=== PATIENT | male | born 1955 | race Caucasian/White ===

== ENCOUNTER 2016-08-02 14:54 | Emergency (ER) | payer MEDICARE, MEDICAID ==
--- NOTE | 2016-08-02 15:49 | UC ---
UC General HPI - HPI Summary HPI Summary: Here with aide - pt non verbal report of rash on his buttocks for approx 2 weeks pt incontinent of urine and stool using clotrimazole cream without relief rash on his chest for approx 1 week - blotchy not using creams on the rash on chest no other report of complaints denies fever normal appetite and elimination no new foods, soaps etc - History of Current Complaint Chief Complaint: UCRash Stated Complaint: RASH BUTTOCK Time Seen by Provider: 08/02/16 15:42 - Allergy/Home Medications Allergies/Adverse Reactions: Allergies Allergy/AdvReac Type Severity Reaction Status Date / Time Sulfamethoxazole Allergy Unknown Verified 01/26/16 16:55 w/Trimethoprim Reaction [From Cotrim] Details Home Medications: Home Medications 08/02/16 See Pt Med List From [facility] 08/02/16 [History] PMH/Surg Hx/FS Hx/Imm Hx Previously Healthy: No - severe MR, CP Endocrine History Of: Denies: Diabetes Cardiovascular History Of: Reports: Cardiac Disorders - EKG abnormality hx Respiratory History Of: Denies: COPD Psychological History Of: Denies: Anxiety - Surgical History Surgical History: None Surgery Procedure, Year, and Place: splenectomy. LEFT ANKLE SX. T & A. bx cervical node. left inguinal herniorrhaphy and left orchidectomy. hernia repair. cataracts. bone marrow bx - Family History Known Family History: Positive: Unknown - Social History Occupation: Disabled Lives: [facility] Alcohol Use: None Substance Use Type: None Smoking Status (MU): Never Smoked Tobacco Review of Systems Constitutional: Negative Skin: Rash Eyes: Negative ENT: Negative Respiratory: Negative Cardiovascular: Negative Gastrointestinal: Negative Genitourinary: Negative Motor: Negative Neurovascular: Negative Musculoskeletal: Negative Neurological: Negative Psychological: Negative All Other Systems Reviewed And Are Negative: Yes Physical Exam Triage Information Reviewed: Yes Completion Of Physical Exam Limited Due To: Altered Mental Status, Other - non verbal sever MR Appearance: No Pain Distress, Thin Vital Signs: Initial Vital Signs Temp 98.5 F 08/02/16 15:28 Pulse 101 08/02/16 15:28 Resp 20 08/02/16 15:28 BP 133/84 08/02/16 15:28 Vital Signs Reviewed: Yes Eyes: Positive: Conjunctiva Clear ENT: Positive: Pharynx normal, TMs normal. Negative: Nasal congestion Neck: Positive: No Lymphadenopathy Respiratory: Positive: Lungs clear, Normal breath sounds, No respiratory distress Cardiovascular: Positive: RRR, No Murmur, Pulses Normal Abdomen Description: Positive: Nontender, Soft Bowel Sounds: Positive: Present Neurological: Positive: Other: - alert Psychological: Positive: Other: - making moaning noises throughout visit Skin Exam: Other - buttocks- bright erythemaouts rash with sattelite lesions chest and shins scatterd erythematous raised papules - no tunneling Skin: Positive: rashes Course/Dx - Differential Dx - Multi-Symptom Differential Diagnoses: Other - contact dermatitis candiasis diaper rash Provider Diagnoses: skin yeast infecction, contact dermatitis Discharge - Discharge Plan Condition: Stable Disposition: HOME Prescriptions: Alum & Mag Hydrox-Simethicone [Maalox Advanced Maximum S 400-400-40 mg/5Ml] 1 terry PO BID #1 terry Clotrimazole 1% TOPICAL (NF) [Lotrimin 1% TOPICAL (NF)] 1 applic TOPICAL BID #1 tube Dimethicone-Zinc Oxide-Vitamin [A & D Zinc Oxide] 1 cre EX BID #1 cre Hydrocortisone 1% CREAM* [Hytone Cream 1%*] 1 applic TOPICAL BID #1 tube Patient Education Materials: Skin Yeast Infection (ED), Contact Dermatitis (ED) Referrals: Chi Pyle MD [Primary Care Provider] - Additional Instructions: Mix the following ingredients and use with every diaper change 2 oz zinc oxide ointment 2 oz A+D ointment~ 1 oz Maalox or similar antacid~ 1 oz clotrimazole~ointment If no improvement in rash please follow-up with your primary care provider Apply hydrocortisone cream 1% to area of rash on [place] and chest If no improvement please make appt with Dr Chavez for followup care.
[2016-08-02 16:28] VITALS: BP 133/84
== END 2016-08-02 16:15 | disposition home or self-care (01) ==
LOC: UCCORT 14:54
DX: B37.89 Other sites of candidiasis (principal); L30.9 Dermatitis, unspecified; Z88.2 Allergy status to sulfonamides
CPT/HCPCS: 99212; G0463

== ENCOUNTER 2017-04-02 10:28 | Emergency (ER) | payer MEDICARE, MEDICAID ==
[2017-04-02 11:57] VITALS: BP 98/61
--- NOTE | 2017-04-02 12:20 | UC ---
Skin Complaint HPI - HPI Summary HPI Summary: patient is from a senior care, has had itchy rash on the neck and upper back, he has been digging and there is an open area above the left scapula. warmth and erythem accros the upper back, scaly rash on back of neck - History of Current Complaint Chief Complaint: UCRash Time Seen by Provider: 04/02/17 11:57 Stated Complaint: RASH Hx Obtained From: Patient Onset/Duration: Sudden Onset, Lasting Days Skin Exposure Onset/Duration: Days Ago Timing: Constant Onset Severity: Mild Current Severity: Moderate Character: Swelling, Pruritus, Redness Aggravating: Nothing Alleviating: Nothing - Allergy/Home Medications Allergies/Adverse Reactions: Allergies Allergy/AdvReac Type Severity Reaction Status Date / Time Sulfamethoxazole Allergy Unknown Verified 04/02/17 11:52 w/Trimethoprim Reaction [From Cotrim] Details Home Medications: Home Medications Famotidine TAB* [Pepcid 20 MG TAB*] 40 mg PO BID 04/02/17 [History Confirmed ] Review of Systems Constitutional: Negative Skin: Rash Eyes: Negative ENT: Negative Respiratory: Negative Cardiovascular: Negative Gastrointestinal: Negative Genitourinary: Negative Motor: Negative Neurovascular: Negative Musculoskeletal: Negative Neurological: Negative Psychological: Other - non verbal Is Patient Immunocompromised?: No All Other Systems Reviewed And Are Negative: Yes PMH/Surg Hx/FS Hx/Imm Hx Previously Healthy: Yes - Surgical History Surgical History: None Surgery Procedure, Year, and Place: splenectomy. LEFT ANKLE SX. T & A. bx cervical node. left inguinal herniorrhaphy and left orchidectomy. hernia repair. cataracts. bone marrow bx - Family History Known Family History: Positive: Unknown - Social History Alcohol Use: None Substance Use Type: None Smoking Status (MU): Never Smoked Tobacco Physical Exam Triage Information Reviewed: Yes Appearance: Well-Appearing, Well-Nourished, Pain Distress Vital Signs: Initial Vital Signs Temp 96.7 F 04/02/17 11:52 Pulse 74 04/02/17 11:52 Resp 16 04/02/17 11:52 BP 98/61 04/02/17 11:52 Vital Signs Reviewed: Yes Eye Exam: Normal ENT Exam: Normal Dental Exam: Normal Neck exam: Normal Respiratory Exam: Normal Cardiovascular Exam: Normal Abdominal Exam: Normal Musculoskeletal Exam: Normal Neurological Exam: Normal Psychological Exam: Normal Skin: Positive: rashes - along the upper back and back of neck, erythema, small open area on the left side, Course/Dx - Course Course Of Treatment: hx obtained, exam performed ,meds reveiwed, treated for infection and dematitis - Differential Diagnoses - Skin Complaint Differential Diagnoses: Abscess, Cellulitis, Contact Dermatitis, Eczema, Urticaria - Diagnoses Provider Diagnoses: dermatitis of upper back and neck. cellulitis of upper back Discharge - Discharge Plan Condition: Stable Disposition: HOME Prescriptions: Betamethasone Dip 0.05% ON(NF) [Betamethasone Dipr 0.05% OINT(NF)] 1 applic TOPICAL BID #1 tube Cephalexin CAP* [Keflex CAP*] 500 mg PO BID #14 cap Patient Education Materials: Contact Dermatitis (ED), Cellulitis (ED) Additional Instructions: 1. see the communitication sheet and complete orders as written.
== END 2017-04-02 12:27 | disposition home or self-care (01) ==
LOC: UCCORT 10:28
DX: L03.312 Cellulitis of back [any part except buttock and flank] (principal); L30.9 Dermatitis, unspecified; Z88.1 Allergy status to other antibiotic agents; Z88.2 Allergy status to sulfonamides
CPT/HCPCS: 99212; G0463

== ENCOUNTER 2017-04-24 11:27 | Emergency (ER) | payer MEDICARE, MEDICAID ==
[2017-04-24 12:05] VITALS: BP 109/72
--- NOTE | 2017-04-24 12:12 | UC ---
Respiratory Complaint HPI - HPI Summary HPI Summary: 61 YEAR OLD MALE PRESENTS WITH COMPLAINS OF FEVER. - History of Current Complaint Chief Complaint: UCRespiratory Stated Complaint: COUGH FEVER Time Seen by Provider: 04/24/17 12:10 Hx Obtained From: Patient Onset/Duration: Lasting Days Severity Initially: Moderate Severity Currently: Moderate - Allergies/Home Medications Allergies/Adverse Reactions: Allergies Allergy/AdvReac Type Severity Reaction Status Date / Time Sulfamethoxazole Allergy Unknown Verified 04/24/17 12:05 w/Trimethoprim Reaction [From Cotrim] Details Home Medications: Home Medications LoraTADine TAB(NF) [Claritin 10 MG TAB(NF)] 10 mg PO DAILY 04/24/17 [History Confirmed 04/24/17] PMH/Surg Hx/FS Hx/Imm Hx Previously Healthy: Yes - Surgical History Surgical History: None Surgery Procedure, Year, and Place: splenectomy. LEFT ANKLE SX. T & A. bx cervical node. left inguinal herniorrhaphy and left orchidectomy. hernia repair. cataracts. bone marrow bx - Family History Known Family History: Positive: Unknown - Social History Alcohol Use: None Substance Use Type: None Smoking Status (MU): Never Smoked Tobacco - Immunization History Most Recent Influenza Vaccination: 04/28/16 Most Recent Tetanus Shot: 12/13/07 Most Recent Pneumonia Vaccination: 02/26/09 Review of Systems Constitutional: Fever, Chills Skin: Negative Eyes: Negative ENT: Negative Respiratory: Negative Cardiovascular: Negative Gastrointestinal: Negative Genitourinary: Negative Motor: Negative Neurovascular: Negative Musculoskeletal: Negative Neurological: Negative Psychological: Negative All Other Systems Reviewed And Are Negative: Yes Physical Exam Triage Information Reviewed: Yes Vital Signs: Initial Vital Signs Temp 37.1 C 04/24/17 11:57 Pulse 84 04/24/17 11:57 Resp 16 04/24/17 11:57 BP 109/72 04/24/17 11:57 Pulse Ox 95 04/24/17 11:57 Vital Signs Reviewed: Yes Eye Exam: Normal ENT Exam: Normal Dental Exam: Normal Neck exam: Normal Neck: Positive: 1 Respiratory: Positive: Wheezing Cardiovascular Exam: Normal Abdominal Exam: Normal Musculoskeletal Exam: Normal Neurological Exam: Normal Psychological Exam: Normal Skin Exam: Normal UC Diagnostic Evaluation - Laboratory O2 Sat by Pulse Oximetry: 95 Respiratory Course/Dx - Differential Dx/Diagnosis Provider Diagnoses: FEVER. COUGH Discharge - Discharge Plan Condition: Stable Disposition: HOME Prescriptions: GuaiFENesin DM* [Robitussin DM*] 5 ml PO Q6H PRN #120 ml PRN Reason: Cough Patient Education Materials: Fever in Adults (ED) Referrals: Chi Pyle MD [Primary Care Provider] -
--- NOTE | 2017-04-24 12:38 | RAD ---
Indication: Cough. 2 views of the chest demonstrates no mediastinal shift. Heart is of normal size and configuration. Lungs are clear. IMPRESSION: No active cardiopulmonary disease is noted.
== END 2017-04-24 13:10 | disposition home or self-care (01) ==
LOC: UCCORT 11:27
DX: R50.9 Fever, unspecified (principal); R05 Cough; Z90.81 Acquired absence of spleen; Z98.49 Cataract extraction status, unspecified eye; Z88.2 Allergy status to sulfonamides
CPT/HCPCS: 71020; 87502; 87651; 99212; G0463